=== PATIENT | male | born 1980 | race American Indian/Alaskan Native ===

== ENCOUNTER 2018-09-05 06:33 | Emergency (ER) | payer MEDICAID ==
[2018-09-05 06:48] VITALS: TEMP 98
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
--- NOTE | 2018-09-05 09:57 | CT ---
Date of service: 09/05/2018 PROCEDURE: CT HEAD WITHOUT CONTRAST. HISTORY: r/o bleed COMPARISON: None available. TECHNIQUE: Axial computed tomography images were obtained through the head/brain without intravenous contrast. Radiation dose: Total exam DLP = 899 mGy-cm. This CT exam was performed using one or more of the following dose reduction techniques: Automated exposure control, adjustment of the mA and/or kV according to patient size, and/or use of iterative reconstruction technique. FINDINGS: HEMORRHAGE: No intracranial hemorrhage. Subdural windows fail to reveal evidence of high density extra-axial acute subdural hematoma. BRAIN: No mass effect or edema. No cortical effacement is seen. Mild amount of atrophy is noted VENTRICLES: Normal in size. CALVARIUM: Unremarkable. PARANASAL SINUSES: Please see CT scan facial bone report of same date. Mastoid air cells are well aerated. MASTOID AIR CELLS: Unremarkable as visualized. No inflammatory changes. OTHER FINDINGS: None. IMPRESSION: No evidence of intracranial hemorrhage or cortical effacement. No evidence of hydrocephalus. Moderate soft tissue swelling overlying the left orbit, preseptal region and frontal bone region please see CT scan facial bone report of same day.
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
[2018-09-05 12:16] VITALS: BP 130/72; PULSE 81; RESP 18; O2SAT 100
== END 2018-09-05 12:21 | disposition home or self-care (01) ==
LOC: H.ER 06:33
DX: S09.93XA Unspecified injury of face, initial encounter (principal); H11.30 Conjunctival hemorrhage, unspecified eye; Y04.0XXA Assault by unarmed brawl or fight, initial encounter; Y92.89 Other specified places as the place of occurrence of the external cause